=== PATIENT | male | born 1960 | race Caucasian/White ===

== ENCOUNTER → 2020-11-13 | Outpatient (CLI) | payer BC | LOC: KOH-I 10:32 | DX: Z12.2 Encounter for screening for malignant neoplasm of respiratory organs (principal); Z87.891 Personal history of nicotine dependence; R91.8 Other nonspecific abnormal finding of lung field | CPT/HCPCS: G0297 ==

== ENCOUNTER → 2020-12-19 | Outpatient (CLI) | payer BC | LOC: HEART 5 07:40 | DX: R06.02 Shortness of breath (principal); I20.8 Other forms of angina pectoris; I08.8 Other rheumatic multiple valve diseases; R93.1 Abnormal findings on diagnostic imaging of heart and coronary circulation | CPT/HCPCS: 78452; 93306; A9502; J2785 ==

== ENCOUNTER → 2021-03-17 | Outpatient (CLI) | payer BC | LOC: KOH-I 08:00 | DX: R91.8 Other nonspecific abnormal finding of lung field (principal) | CPT/HCPCS: 71250 ==

== ENCOUNTER 2021-10-22 11:47 | Emergency (ER) | payer BC ==
[~2021-10-22] VITALS: Ht 172.7 cm; Wt 102.5 kg
== END 2021-10-22 15:24 | disposition home or self-care (01) ==
LOC: ER1 11:47
DX: U07.1 COVID-19 (principal); Z88.5 Allergy status to narcotic agent; E78.5 Hyperlipidemia, unspecified; J44.9 Chronic obstructive pulmonary disease, unspecified; Z23 Encounter for immunization
CPT/HCPCS: 99283; M0245

== ENCOUNTER → 2021-12-02 | Outpatient (CLI) | payer BC | LOC: EXRD 10:57 | DX: U09.9 Post COVID-19 condition, unspecified (principal); R91.8 Other nonspecific abnormal finding of lung field | CPT/HCPCS: 71046 ==

== ENCOUNTER → 2022-05-28 | Outpatient (CLI) | payer BC | LOC: KOH-I 12:06 | DX: Z87.891 Personal history of nicotine dependence (principal); J98.11 Atelectasis | CPT/HCPCS: 71271 ==